=== PATIENT | female | born 1990 | race Caucasian/White ===

== ENCOUNTER → 2017-06-11 | Outpatient (CLI) | payer OTHER ==
[~2017-06-11] MED LIST: DICY10CA53 PO; METO25TA2 PO
== END ==
LOC: ROC 08:54
PROVIDERS: ATTEND Radiology Radiation Oncology
DX: L91.0 Hypertrophic scar (principal)
CPT/HCPCS: 99212; G0463

== ENCOUNTER → 2017-06-11 | Outpatient (CLI) | payer OTHER | LOC: ROC 08:37 | PROVIDERS: ATTEND Radiology Radiation Oncology | DX: Z02.9 Encounter for administrative examinations, unspecified (principal) ==

== ENCOUNTER → 2018-03-07 | Outpatient (CLI) | payer OTHER | END | disposition home or self-care (01) | LOC: RAD 10:27 | PROVIDERS: ATTEND Internal Medicine Hematology & Oncology | DX: S43.401A Unspecified sprain of right shoulder joint, initial encounter (principal); X58.XXXA Exposure to other specified factors, initial encounter; Y93.89 Activity, other specified; Y92.89 Other specified places as the place of occurrence of the external cause; Y99.8 Other external cause status ==

== ENCOUNTER → 2018-03-25 | Outpatient (CLI) | payer OTHER | END | disposition home or self-care (01) | LOC: ROC 08:11 | PROVIDERS: ATTEND Radiology Radiation Oncology | DX: Z08 Encounter for follow-up examination after completed treatment for malignant neoplasm (principal); L91.0 Hypertrophic scar | CPT/HCPCS: 99212; G0463 ==

== ENCOUNTER 2018-10-02 18:39 | Emergency (ER) | payer OTHER ==
[~2018-10-02] VITALS: Ht 175.3 cm; Wt 123.4 kg
[2018-10-02 18:41] VITALS: BP 143/91
--- NOTE | 2018-10-02 19:10 | NUR ---
[employer] INTERN WHO WAS SPASHED WITH BLOODY SALINE TO LEFT EYE AT 6PM WHILE WORKING IN THE OPERATING ROOM. BLOOD INFECTION STATUS UNKNOWN. RINNSED IMMEDIATELY. NO SIGN OF ABNORMALITY AT THIS TIME
--- NOTE | 2018-10-02 19:35 | NUR ---
LAB AT BEDSIDE
== END 2018-10-02 19:46 | disposition home or self-care (01) ==
LOC: ED 19:43
DX: Z77.21 Contact with and (suspected) exposure to potentially hazardous body fluids (principal)
CPT/HCPCS: 36415; 86705; 86706; 86803; 87340; 87806; 99283; G0475

== ENCOUNTER → 2020-08-18 | Outpatient (CLI) | payer OTHER ==
[~2020-08-18] MED LIST changes: +DICY10AM2 PO; +multivitamin PO
== END | disposition home or self-care (01) ==
LOC: STAR 07:24
PROVIDERS: ATTEND Orthopaedic Surgery
DX: Z20.822 Contact with and (suspected) exposure to COVID-19 (principal); M67.431 Ganglion, right wrist; G56.01 Carpal tunnel syndrome, right upper limb
CPT/HCPCS: U0003; U0005

== ENCOUNTER 2020-08-24 10:04 | Day surgery (SDC) | payer OTHER ==
[~2020-08-24] VITALS: Ht 175.3 cm; Wt 124.0 kg
[~2020-08-24 10:04] MED LIST changes: +BUPIVACAINE/PF 0.5% ONE; +LIDOCAINE-MPF 1%, 5ML ONE; +SCOPOLAMINE 1MG PATCH TD ONE
[2020-08-24] MEDS ORDERED: LACTATED RINGERS 1,000 ML IV SCH (10:30)
[2020-08-24] MEDS ORDERED: ACETAMINOPHEN 500 MG TABLET PO ONE (10:30)
[2020-08-24] MEDS ORDERED: CHLORHEXIDINE 15 ML UDC PO ONE (10:30)
[2020-08-24 10:31] VITALS: BP 134/83
[2020-08-24] MEDS ORDERED: CHLORHEXIDINE 15 ML UDC ONE (10:32)
[2020-08-24 10:41] LABS: HCG UR SG 1.009 (1.003-1.030)
[2020-08-24] MEDS ORDERED: DEXAMETHASONE 4 MG/ML, 1ML ONE (11:17)
[2020-08-24] MEDS ORDERED: MIDAZOLAM 1 MG/ML, 2ML ONE (11:18)
[2020-08-24] MEDS ORDERED: FENTANYL PF 100 MCG/2ML ONE ×2 (11:23→11:49)
[2020-08-24] MEDS ORDERED: PROPOFOL 100 ML ONE (11:35)
[2020-08-24] MEDS ORDERED: HYDROmorphone 1 MG/ML, 1ML INJ IVPush PRN (12:00)
[2020-08-24] MEDS ORDERED: PROMETHAZINE 25 MG SUPP PR PRN (12:00)
[2020-08-24] MEDS ORDERED: METHOCARBAMOL 1,000 MG in DEXTROSE 5% 100 ML IV PRN (12:00)
[2020-08-24] MEDS ORDERED: ACETAMINOPHEN 325 MG TABLET PO PRN (12:00)
[2020-08-24] MEDS ORDERED: HALOPERIDOL 5 MG/ML IV PRN (12:00)
[2020-08-24] MEDS ORDERED: PROMETHAZINE 25 MG/ML, 1ML IVPush PRN (12:00)
[2020-08-24] MEDS ORDERED: ONDANSETRON 2MG/ML, 2ML IVPush PRN (12:00)
[2020-08-24] MEDS ORDERED: FENTANYL PF 100 MCG/2ML IV PRN (12:00)
[2020-08-24] MEDS ORDERED: OXYcodone 5 MG/5 ML ORAL.SOL UDC PO PRN (12:00)
[2020-08-24] MEDS ORDERED: LORazepam 2 MG/ML, 1ML IVPush PRN (12:00)
[2020-08-24] MEDS ORDERED: PROPOFOL 10 MG/ML, 20ML ONE (12:05)
[2020-08-24] MEDS ORDERED: CEFAZOLIN 1,000 MG ONE (12:05)
[2020-08-24] MEDS ORDERED: ONDANSETRON 2MG/ML, 2ML ONE (12:05)
[2020-08-24] MEDS ORDERED: OXYcodone 5 MG/5 ML ORAL.SOL UDC ONE (12:32)
== END 2020-08-24 13:45 | disposition home or self-care (01) ==
LOC: OUT 10:04
PROVIDERS: ATTEND Orthopaedic Surgery
DX: M67.431 Ganglion, right wrist (principal); G56.01 Carpal tunnel syndrome, right upper limb; I10 Essential (primary) hypertension
CPT/HCPCS: 25111; 29848; 81025; 88305; J0690; J1100; J2250; J2405; J2704; J2800; J3010; J7120